=== PATIENT | male | born 2005 | race African-American/Black ===

== ENCOUNTER 2025-06-24 12:38 | Emergency (ER) | payer OTHER ==
[~2025-06-24] VITALS: Ht 180.3 cm; Wt 72.0 kg
[2025-06-24 12:53] VITALS: O2SAT 99
[2025-06-24] MEDS ORDERED: BO1 TP (15:01)
[2025-06-24 15:07] VITALS: BP 120/62; PULSE 69; RESP 16; TEMP 36.7; O2SAT 99
== END 2025-06-24 15:08 | disposition home or self-care (01) ==
LOC: ER 12:38
DX: S61.210A Laceration without foreign body of right index finger without damage to nail, initial encounter (principal); W26.8XXA Contact with other sharp object(s), not elsewhere classified, initial encounter; X58.XXXA Exposure to other specified factors, initial encounter; Y93.89 Activity, other specified; Y92.89 Other specified places as the place of occurrence of the external cause; Y99.8 Other external cause status
CPT/HCPCS: 99282